=== PATIENT | male | born 1960 | race Caucasian/White ===

== ENCOUNTER 2022-03-11 08:44 | Outpatient (CLI) | payer OTHER, SELFPAY ==
--- NOTE | ~2022-03-11 | XR_ITS ---
Clinical Indication: Chest pain PA and lateral views of the chest: Comparison: 08/11/2017 Findings: The lungs are clear, without evidence of focal consolidation or pleural effusion. Cardiome diastinal silhouette is within normal limits. Bones and soft tissues are unremarkable. Impression: Normal chest. Reviewed, dictated and finalized at location [] [facility] [employer] Impression: Normal chest.
== END 2022-03-11 08:45 | disposition home or self-care (01) ==
PROVIDERS: PCP Family Medicine; Visit Provider Family Medicine
DX: R07.9 Chest pain, unspecified (principal)
CPT/HCPCS: 71046

== ENCOUNTER 2022-04-01 09:36 | Outpatient (CLI) | payer OTHER, SELFPAY ==
--- NOTE | ~2022-04-01 | NM_ITS ---
EXAMINATION: NM stress w perf spect multi DATE: 04/01/2022 15:03 INDICATION: Chest pain. TECHNIQUE: Rest images were obtained following intravenous administration of 10.2 mCi Tc99m tetrofosm in (Myoview). The patient performed an exercise activity. At peak exercise, 33.3 mCi Tc99m tetrofosmi n (Myoview) was administered intravenously, and stress images were obtained. Data was reconstructed i nto short axis and horizontal and vertical long axis SPECT images. Gated SPECT images were also obtai benito. COMPARISON: None. FINDINGS: There is no definite reversible or fixed perfusion abnormality to suggest ischemia or infar ction. There is no segmental wall motion abnormality. Left ventricular ejection fraction measures 5 6%. IMPRESSION: 1. No definite ischemia or infarct. 2. Normal left ventricular ejection fraction measuring 56%. Reviewed, dictated and finalized at location [facility]
--- NOTE | 2022-04-01 10:33 | EST_ITS ---
Patient Info Name: Eze Almonte Age: 62 years : 1960 Gender: Male Ht: 74 in Wt: 244 lbs BSA: 2.43 m2 HR: 66 bpm BP: 157 / 92 mmHg Heart Rhythm: Sinus Rhythm Exam Date: 04/01/2022 10:44 AM Exam Location: [facility] Stress Patient Status: Outpatient Admit Date: 04/01/2022 Staff Ordering Physician: Pieter Robles MD Attending Provider: Pieter Robles MD Exercise Technologist: Carla Griffin CT Exercise Physician: Jm Cee DO Exam Type: CA stress test treadmill w NM Study Info Indications R07.9 - Chest pain, unspecified A nuclear stress test was performed. Summary 1. 1. Negative Arnold exercise stress test for ischemic ST changes by ECG criteria. 2. 2. Good functional capacity, achieving 10 METs of workload. 3. 3. Baseline hypertension with hypertensive response to exercise. 4. 4. Appropriate HR response to exercise. 5. 5. Appropriate HR recovery at 1 minute post exercise. 6. 6. Nuclear scan to follow and will be reported separately. Please correlate with it. 7. 7. Patient informed of the above results. Protocol: Arnold Stress ECG Details Stage: REST Duration (min): 1 min : 47 sec Speed (mph): 0.0 Grade (%): 0 HR (bpm): 66 SBP (mmHg): 157 DBP (mmHg): 92 METS: --- Stage: REST Duration (min): 15 min : 41 sec Speed (mph): 0.0 Grade (%): 0 HR (bpm): 67 SBP (mmHg): 157 DBP (mmHg): 92 METS: --- Stage: STAGE 1 Duration (min): 1 min : 0 sec Speed (mph): 1.7 Grade (%): 10 HR (bpm): 95 SBP (mmHg): 157 DBP (mmHg): 92 METS: --- Stage: STAGE 1 Duration (min): 2 min : 0 sec Speed (mph): 1.7 Grade (%): 10 HR (bpm): 107 SBP (mmHg): 157 DBP (mmHg): 92 METS: --- Stage: STAGE 1 Duration (min): 3 min : 0 sec Speed (mph): 1.7 Grade (%): 10 HR (bpm): 109 SBP (mmHg): 195 DBP (mmHg): 93 METS: --- Stage: STAGE 2 Duration (min): 1 min : 0 sec Speed (mph): 2.5 Grade (%): 12 HR (bpm): 117 SBP (mmHg): 195 DBP (mmHg): 93 METS: --- Stage: STAGE 2 Duration (min): 2 min : 0 sec Speed (mph): 2.5 Grade (%): 12 HR (bpm): 123 SBP (mmHg): 220 DBP (mmHg): 91 METS: --- Stage: STAGE 2 Duration (min): 3 min : 0 sec Speed (mph): 2.5 Grade (%): 12 HR (bpm): 126 SBP (mmHg): 220 DBP (mmHg): 91 METS: --- Stage: STAGE 3 Duration (min): 1 min : 0 sec Speed (mph): 3.4 Grade (%): 14 HR (bpm): 135 SBP (mmHg): 233 DBP (mmHg): 88 METS: --- Stage: STAGE 3 Duration (min): 2 min : 0 sec Speed (mph): 3.4 Grade (%): 14 HR (bpm): 139 SBP (mmHg): 233 DBP (mmHg): 88 METS: --- Stage: STAGE 3 Duration (min): 2 min : 20 sec Speed (mph): 3.4 Grade (%): 14 HR (bpm): 142 SBP (mmHg): 233 DBP (mmHg): 88 METS: --- Stage: RECOVERY Duration (min): 0 min : 39 sec Speed (mph): 0.0 Grade
== END 2022-04-01 09:37 | disposition home or self-care (01) ==
PROVIDERS: PCP Family Medicine; Visit Provider Family Medicine
DX: R07.9 Chest pain, unspecified (principal); R94.31 Abnormal electrocardiogram [ECG] [EKG]; I10 Essential (primary) hypertension
CPT/HCPCS: 78452; 93017; A9502

== ENCOUNTER 2025-01-03 00:23 | Day surgery (SDC) | payer OTHER, SELFPAY ==
[2024-12-25 09:45] VITALS: BMI 31.2
[2025-01-03 06:49] VITALS: BP 138/83; PULSE 66; RESP 18; TEMP 36.3; O2SAT 97
[2025-01-03] MEDS: LACTATED RINGERS 1,000 ML 150 ML IV CONT (07:03)
--- NOTE | 2025-01-03 07:42 | WPDANESEPPF ---
Anes - Initial Pre Proc Eval Procedure: Operation Date: 01/03/25 08:00 Proposed Procedures p Screening Colonoscopy - Joel Cha MD Date/Time: 01/03/25 07:42 Surgeon: Joel Cha MD Pre Op Diagnosis: Personal history of colon polyps, unspecified Patient Data Age: 64 Gender: M Height: 1.88 m Weight: 113.4 kg Last Vital Signs Temp 97.4 F L 01/03/25 06:49 Pulse 66 01/03/25 06:49 Resp 18 01/03/25 06:49 BP 138/83 01/03/25 06:49 Pulse Ox 97 01/03/25 06:49 O2 Del Method Room Air 01/03/25 06:49 Allergies Allergy/AdvReac Type Severity Reaction Status Date / Time No Known Allergies Allergy Verified 01/03/25 06:48 Home Medications ?Medication ?Instructions ?Recorded ?Confirmed ?Type amlodipine 5 mg tablet See Rx Instructions .Route 07/17/24 12/25/24 Rx .COMPLEX #90 tabs cholecalciferol (vitamin D3) 125 125 mcg PO DAILY 08/16/24 12/25/24 History mcg (5,000 unit) capsule rosuvastatin 20 mg tablet See Rx Instructions .Route 12/25/24 12/25/24 Rx .COMPLEX #90 tabs Patient hx anesthesia problems: none Family hx anesthesia problems: none Results Review: All pre-operative results and documents have been reviewed as part of the pre-operative evaluation. COUNT INCLUDES THE [facility] Past Medical History Medical History Long QT interval Chest pain Essential hypertension Mixed hyperlipidemia Low vitamin D level Erectile dysfunction Elevated blood pressure reading without diagnosis of hypertension BMI 31.0-31.9,adult Rotator cuff tear, right Pain of left shoulder region Arthritis Vision abnormalities Surgical History Surgical History H/O arthroscopic knee surgery Family History Family History Grandparent Hypertension Family history of coronary artery disease Father Family history of coronary artery disease Unknown Cardiovascular disease Unknown Arthritis Other Family history of throat cancer Social History Social History (Reviewed 01/03/25 @ 07:42 by TYE Esquivel Smoking status: Never smoker Alcohol intake: never Substance use: never Substance use type: does not use Do You Feel Safe in your Home?: Yes Lack of Transportation: No Lack of Food: Never True Current Housing: I Have Housing Concerned About Future Housing: No Difficulty Paying Gas/Electric Bills: No Difficulty Paying for Meds: No Currently Unemployed: No Education: Bachelor's Degree Difficulty w/ Childcare or Family Care: No Living arrangements: with family Occupation/Education: occupation Additional occupation/education comments: [employer] Gender identity (if verbalized by the patient): Male Spiritual care concerns: No Anes - Eval Final PreProcedure Day of Procedure 01/03/25 07:42 Patient weight: obese Lungs: normal air movement Neurological: alert and oriented Last oral intake: >/= 8 hours ASA classification: III Emergent: no Anesthetic plan: proceed Anesthesia type and monitoring: general and standard monitoring Results Review: All pre-operative results and documents have been reviewed as part of the pre-operative evaluation. HTN, hyperlipidemia, pt can walk 1--2 fos, no cp or sob. Informed Consent: The patient's anesthetic plan and its attendant risks and benefits were discussed with the patient/family/POA. Questions were solicited and answers provided to the satisfaction of the patient/family/POA.
--- NOTE | 2025-01-03 07:49 | PM.HPGS ---
History of Present Illness History of Present Illness Consent: Risks, benefits, and alternatives have been discussed and questions answered. Patient agrees to proceed with procedure. Chief complaint: Personal history of colon polyps, unspecified Narrative: Eze Almonte Jr. is a 64 year old male with colon polyp in 2019 Review of Systems Review of Systems: All systems reviewed & are unremarkable except as noted in HPI and below PMFSH Past Medical History Medical History (Updated 01/03/25 @ 07:49 by Joel Cha MD) Colon polyp Long QT interval Chest pain Essential hypertension Mixed hyperlipidemia Low vitamin D level Erectile dysfunction Elevated blood pressure reading without diagnosis of hypertension BMI 31.0-31.9,adult Rotator cuff tear, right Pain of left shoulder region Arthritis Vision abnormalities Surgical History Surgical History H/O arthroscopic knee surgery Family History Family History Grandparent Hypertension Family history of coronary artery disease Father Family history of coronary artery disease Unknown Cardiovascular disease Unknown Arthritis Other Family history of throat cancer Social History Social History Smoking status: Never smoker Alcohol intake: never Substance use: never Substance use type: does not use Do You Feel Safe in your Home?: Yes Lack of Transportation: No Lack of Food: Never True Current Housing: I Have Housing Concerned About Future Housing: No Difficulty Paying Gas/Electric Bills: No Difficulty Paying for Meds: No Currently Unemployed: No Education: Bachelor's Degree Difficulty w/ Childcare or Family Care: No Living arrangements: with family Occupation/Education: occupation Additional occupation/education comments: [employer] Gender identity (if verbalized by the patient): Male Spiritual care concerns: No Meds Home Medications and Allergies Home Medications ?Medication ?Instructions ?Recorded ?Confirmed ?Type amlodipine 5 mg tablet See Rx Instructions .Route 07/17/24 12/25/24 Rx .COMPLEX #90 tabs cholecalciferol (vitamin D3) 125 125 mcg PO DAILY 08/16/24 12/25/24 History mcg (5,000 unit) capsule rosuvastatin 20 mg tablet See Rx Instructions .Route 12/25/24 12/25/24 Rx .COMPLEX #90 tabs Allergies Allergy/AdvReac Type Severity Reaction Status Date / Time No Known Allergies Allergy Verified 01/03/25 06:48 Vital Signs Vital Signs - 24 hr 01/03/25 06:49 Temperature 97.4 F L Pulse Rate 66 Respiratory Rate 18 Blood Pressure 138/83 Pulse Oximetry 97 Oxygen Delivery Room Air Exam Const: General: comfortable and no acute distress HENMT: Face/Nose/Sinus: Normal nares present Eyes: General: appearance normal, both eyes and all related structures Neck: Neck: no JVD Resp: Auscultation: clear to auscultation bilaterally Cardio: Rate: regular rate Rhythm: regular rhythm GI: Inspection: non-distended GI Palp: Yes Soft to palpation Skin: General skin exam: normal color Extrem: General: normal to inspection Psych: Mental Status: mental status grossly normal Assessment and Plan Assessment and plan (1) Colon polyp: Code(s): K63.5 - Polyp of colon Status: Acute Assessment and Plan: colonoscopy
--- NOTE | 2025-01-03 08:07 | S_PTH ---
PATIENT: Eze Almonte Jr. LOC: [facility]#:[id number] AGE/SX: 64/M ROOM: RE01/03/[address]: Joel Cha MD : 1960 BED: DIS: 01/03/2025 SPEC #: [id number] RECD: 01/03/25 08:40 STATUS: NAIMA SKELTON #: [id number] VINCENT: 01/03/25 08:[address]: Joel Cha DEPT: [facility] Surgical RECD BY: Lacie He ENTERED: 01/03/25 08:41 SP TYPE: Surgical OTHR DR: Pieter Robles MD Tissues: A - Colon Polypectomy B - Colon Polypectomy Procedures: Hematoxylin and Eosin Stain Gross and Microscopic Level 4
[2025-01-03 08:10] VITALS: BP 116/76; PULSE 66; RESP 15; O2SAT 95
[2025-01-03 08:20] VITALS: BP 111/72; PULSE 64; RESP 17; O2SAT 99
[2025-01-03 08:30] VITALS: BP 119/77; PULSE 64; RESP 16; O2SAT 100
== END 2025-01-03 08:39 | disposition home or self-care (01) ==
PROVIDERS: PCP Family Medicine; Referring Provider Family Medicine; Visit Provider Internal Medicine Gastroenterology
PROC: 0DJD8ZZ Inspection of Lower Intestinal Tract, Via Natural or Artificial Opening Endoscopic (ICD-10-PCS; CPT 45378; principal; 2025-01-03 08:00)
DX: Z12.11 Encounter for screening for malignant neoplasm of colon (principal); D12.2 Benign neoplasm of ascending colon; D12.4 Benign neoplasm of descending colon; K64.8 Other hemorrhoids; K57.30 Diverticulosis of large intestine without perforation or abscess without bleeding; I10 Essential (primary) hypertension; E78.2 Mixed hyperlipidemia; E55.9 Vitamin D deficiency, unspecified; N52.9 Male erectile dysfunction, unspecified; M19.90 Unspecified osteoarthritis, unspecified site; E66.9 Obesity, unspecified; Z68.32 Body mass index [BMI] 32.0-32.9, adult; Z98.890 Other specified postprocedural states; Z80.1 Family history of malignant neoplasm of trachea, bronchus and lung; Z82.49 Family history of ischemic heart disease and other diseases of the circulatory system
CPT/HCPCS: 45385; 88305; J2003; J2704; J7120